=== PATIENT | male | born 1970 | race Caucasian/White ===

== ENCOUNTER 2018-06-29 09:34 | Day surgery (SDC) | payer OTHER ==
[2018-06-29] MEDS: NS 1,000 ML IV (09:45)
[2018-06-29] MEDS ORDERED: LIDOCAINE 2% INJ 100 MG/5 ML SDV (FOR ANES.) As Ordered (10:50)
[2018-06-29] MEDS ORDERED: fentaNYL 100 MCG/2 ML INJECTION (J3010) As Ordered (10:50)
[2018-06-29] MEDS ORDERED: PROPOFOL 200 MG/20 ML VIAL As Ordered (10:50)
== END 2018-06-29 12:55 | disposition home or self-care (01) ==
LOC: M OPP 09:34
DX: D50.9 Iron deficiency anemia, unspecified (principal); K44.9 Diaphragmatic hernia without obstruction or gangrene; I10 Essential (primary) hypertension; E78.5 Hyperlipidemia, unspecified; Z79.82 Long term (current) use of aspirin; F41.9 Anxiety disorder, unspecified; F32.9 Major depressive disorder, single episode, unspecified; G43.909 Migraine, unspecified, not intractable, without status migrainosus; Z79.899 Other long term (current) drug therapy
CPT/HCPCS: 43239